=== PATIENT | male | born 1990 | race African-American/Black ===

== ENCOUNTER 2016-07-06 20:13 | Emergency (ER) | payer OTHER ==
--- NOTE | ~2016-07-06 | CR20 ---
[facility] A Service of [facility] & [facility] RADIOLOGY TEXT RESULTS PATIENT: TOI BLANDON LOCATION: [facility] : [birth year] UNIT #: [id number] AGE: [address]: Laurel Paula APRN SEX: M ORDER DR: [id number] [facility] [address] [place], [place] [address] [id number] E MR#: [id number] Acc #: [id number] NAME: TOI BLANDON : 1990 SEX: M STUDY DATE/TIME: 07/06/2016 20:01 UNIT: TX ROOM: STUDY DESCRIPTION: CR Ankle Min 3 Views Lt Attending Physician: Laurel Paula A.P.R.N. Ordering Physician: Laurel Paula A.P.R.N. Primary Care Physician: Primary Care Physician No MEDICAL IMAGING REPORT This report is preliminary unless electronic signature is present EXAM Left ankle 3 views, 07/06/2016 HISTORY Ankle pain after twisting injury playing basketball today. FINDINGS AP, lateral, and oblique projections of the ankle show satisfactory integrity of the joint mortise with a smooth articular surface. There is no identifiable fracture, dislocation, or radiopaque foreign body. IMPRESSION Normal ankle. Dictated by... Srinath Garcia M.D. THIS IS AN ELECTRONICALLY VERIFIED REPORT Srinath Garcia M.D. at 07/07/2016 2:42 PM DFL/sharon TD: 07/07/2016 02:47 JOB #: [id number] MEDICAL IMAGING REPORT Page 1 of 1 COPY
== END 2016-07-06 21:25 | disposition home or self-care (01) ==
LOC: CFTX 20:13
DX: S93.402A Sprain of unspecified ligament of left ankle, initial encounter (principal); F17.210 Nicotine dependence, cigarettes, uncomplicated; X58.XXXA Exposure to other specified factors, initial encounter; Y93.67 Activity, basketball
CPT/HCPCS: 29515; 73610; 96372; 99283; J1885

== ENCOUNTER 2016-08-02 03:26 | Emergency (ER) | payer OTHER ==
--- NOTE | ~2016-08-02 | CR55 ---
[facility] A Service of [facility] & [facility] RADIOLOGY TEXT RESULTS PATIENT: TOI BLANDON LOCATION: [facility] : [birth year] UNIT #: [id number] AGE: [address]: Clarke Orozco MD SEX: M ORDER DR: [id number] [facility] [address] [place], [place] [address] [id number] E MR#: [id number] Acc #: [id number] NAME: TOI BLANDON : 1990 SEX: M STUDY DATE/TIME: 08/02/2016 3:13 UNIT: [facility] ROOM: STUDY DESCRIPTION: CR Calcaneus Min 2 Views Lt Attending Physician: Clarke Orozco M.D. Ordering Physician: Heath Medrano Aprn Primary Care Physician: Primary Care Physician No MEDICAL IMAGING REPORT This report is preliminary unless electronic signature is present EXAM Left calcaneus, 08/02/2016 HISTORY 25-year-old male in the ED complaining of left ankle pain and left heel pain after injury. Stepped in a pothole tonight prior to arrival. TECHNIQUE 2-view left calcaneus series. FINDINGS The examination is negative. No fracture or other acute osseous abnormality is demonstrated. IMPRESSION Negative left calcaneus. Dictated by... Alejandro Oro M.D. THIS IS AN ELECTRONICALLY VERIFIED REPORT Alejandro Oro M.D. at 08/02/2016 5:58 AM BECKY/sharon TD: 08/02/2016 04:36 JOB #: [id number] MEDICAL IMAGING REPORT Page 1 of 1 COPY
--- NOTE | ~2016-08-02 | CR20 ---
[facility] A Service of [facility] & [facility] RADIOLOGY TEXT RESULTS PATIENT: TOI BLANDON LOCATION: [facility] : 91 UNIT #: [id number] AGE: [address]: Clarke Orozco MD SEX: M ORDER DR: [id number] [facility] [address] [place], [place] [address] [id number] E MR#: [id number] Acc #: [id number] NAME: TOI BLANDON : 1990 SEX: M STUDY DATE/TIME: 08/02/2016 3:13 UNIT: [facility] ROOM: STUDY DESCRIPTION: CR Ankle Min 3 Views Lt Attending Physician: Clarke Orozco M.D. Ordering Physician: Heath Medrano Aprn Primary Care Physician: Primary Care Physician No MEDICAL IMAGING REPORT This report is preliminary unless electronic signature is present EXAM Left ankle series, 08/02/2016 HISTORY 25-year-old male in the ED complaining of left ankle pain and left heel pain after injury. Stepped in a pothole tonight prior to arrival. TECHNIQUE Three-view left ankle series. FINDINGS The examination is negative. No fracture, dislocation or other acute osseous abnormality. IMPRESSION Negative left ankle series. Dictated by... Alejandro Oro M.D. THIS IS AN ELECTRONICALLY VERIFIED REPORT Alejandro Oro M.D. at 08/02/2016 5:58 AM BECKY/sharon TD: 08/02/2016 04:34 JOB #: [id number] MEDICAL IMAGING REPORT Page 1 of 1 COPY
== END 2016-08-02 04:18 | disposition home or self-care (01) ==
LOC: CED 03:26
DX: S86.012A Strain of left Achilles tendon, initial encounter (principal); X50.1XXA Overexertion from prolonged static or awkward postures, initial encounter; Y92.009 Unspecified place in unspecified non-institutional (private) residence as the place of occurrence of the external cause; F17.200 Nicotine dependence, unspecified, uncomplicated
CPT/HCPCS: 29515; 73610; 73650; 99283